=== PATIENT | female | born 1945 | race Caucasian/White ===

== ENCOUNTER → 2017-02-09 | Outpatient (CLI) | payer MEDICARE ==
[2017-02-09 13:46] LABS: CH 32.2; CHCM 33.6; HDW 2.36; MCH 32.1 pg (25.0-35.0); MCHC 33.3 g/dL (31.0-37.0); MCV 96.3 fL (80.0-100.0); Mean Platelet Volume 7.5; RBC 4.36 m/uL (3.80-5.40); WBC 5.4 k/uL (3.8-10.6)
[2017-02-09 13:50] LABS: ALT 83 U/L (9-52); AST 26 U/L (14-36); Alkaline Phosphatase 78 U/L (38-126); Anion Gap 12 mmol/L; Blood Urea Nitrogen 11 mg/dL (7-17); Calcium 9.4 mg/dL (8.4-10.2); Carbon Dioxide 32 mmol/L (22-30); Chloride 100 mmol/L (98-107); Glucose 97 mg/dL (74-99); Non-African American GFR(MDRD) >60 (>60 ml/min/1.73 sqM); Potassium 4.9 mmol/L (3.5-5.1); Sodium 144 mmol/L (137-145); Total Bilirubin 0.4 mg/dL (0.2-1.3); Total Protein 7.3 g/dL (6.3-8.2)
== END | disposition home or self-care (01) ==
LOC: LABWHC1 12:57
PROVIDERS: ATTEND Psychiatry & Neurology Psychiatry
DX: E03.9 Hypothyroidism, unspecified (principal); F31.60 Bipolar disorder, current episode mixed, unspecified; Z79.899 Other long term (current) drug therapy; Z51.81 Encounter for therapeutic drug level monitoring
CPT/HCPCS: 36415; 80053; 80164; 84439; 84443; 85027

== ENCOUNTER 2017-05-09 08:24 | Day surgery (SDC) | payer MEDICARE, OTHER ==
[2017-05-04 15:02] VITALS: BMI 20.2
[~2017-05-09 08:24] MED LIST: LACTATED RINGERS 1,000 ML IV SCH; LIDOCAINE 1% 20 ML VIAL (10MG/ML) FOR IV START INTRADERMA PRN; ONDANSETRON 4 MG/2 ML VIAL IVP PRN
[2017-05-09] MEDS: CYCLOPENTOLATE 1% OPHTH SOLN 2 ML BTL OP ONE ×4 (09:07→09:27)
[2017-05-09] MEDS: FLURBIPROFEN 0.03% OPHTH DROPS 2.5 ML BTL OP ONE ×3 (09:10→09:30)
[2017-05-09 09:14] VITALS: RESP 16; TEMP 97.5
[2017-05-09] MEDS: PHENYLEPHRINE 10% OPHTH DROPS 5 ML BTL OP ONE ×3 (09:14→09:33)
[2017-05-09] MEDS ORDERED: LIDOCAINE 1% INJ 10MG/ML (20 ML MDV) ONE (09:53)
[2017-05-09] MEDS ORDERED: PROPOFOL 10 MG/ML 20 ML VIAL IV ONE (09:53)
[2017-05-09] MEDS ORDERED: BALANCED SALT IRRIG SOLN COMB2 15 ML IRRIG.SOLN INTRAOCULA ONE (09:56)
[2017-05-09] MEDS ORDERED: EPINEPHrine (PF) 0.5 ML in BALANCED SALT IRRIG SOLN COMB2 500 ML IRRIGATION ONE (09:56)
[2017-05-09] MEDS ORDERED: TIMOLOL 0.5% OPHTH SOLN (PF) 0.2 ML DROPERETTE RIGHT EYE ONE (09:57)
[2017-05-09] MEDS ORDERED: HYALURONATE SODIUM INTRAOCULAR 1 EACH SYRINGE (10MG/ML) INTRAOCULA ONE (09:57)
--- NOTE | 2017-05-09 10:16 | P.OP ---
Date of Procedure: 05/09/17 Preoperative Diagnosis: Postoperative Diagnosis: Procedure(s) Performed: PREOPERATIVE DIAGNOSIS: Cataract, right eye. POSTOPERATIVE DIAGNOSIS: Cataract, right eye. OPERATION: Phacoemulsification cataract, right eye. DESCRIPTION OF PROCEDURE: The patient was taken to the preoperative holding area. Intravenous Propofol was given so as to bring about adequate sedation. The following mixture was given for local anesthesia: 5 mL of 2% lidocaine, 5 mL of 0.75% Marcaine, and 1 mL of Wydase. Approximately 4 mL was injected in the retrobulbar space of the surgical eye. Additional 1 mL was then directed to the temporal area of the surgical eye. This was performed to allow adequate neurological block of the facial muscles. The patient was revived and then taken into the operative room. The patient was prepped and draped in the usual sterile manner for the operative eye. A lid speculum was put into position. The conjunctiva was resected back from the limbus in the 12 o'clock position. Bleeding was controlled with electrocautery. A #69 blade was then used and a half-thickness scleral incision approximately 1-mm posterior to the limbus was made on bare sclera. This was shelved in the clear cornea using a crescent knife. Next a 15-degree blade was used to make a stab incision at the 3 o' clock position at the corneolimbal interface. Keratome blade was then used and the superior wound was extended into the anterior chamber. Viscoelastic was injected into the anterior chamber and to maintain its form. Next, a cystotome was used and a continuous anterior capsulotomy was made without difficulty. Hydrodissection using a blunt cannula and BSS was performed. Phaco probe was then employed and a groove extending from 12 to 6 o'clock in the lens was created. A Clark wand was used through the stab incision so as to perform a divide and conquer technique. Next an irrigation aspiration probe was utilized and any residual cortex was removed from the eye. Again, viscoelastic was injected into the anterior chamber. An Max posterior chamber lens implant was placed in the cartridge and injected into the anterior chamber without difficulty. The [employer] hook was utilized to spin the lens into position and this was again performed without any difficulty. The irrigation and aspiration probe was again employed and any residual viscoelastic was removed from the eye. Then BSS was injected into the limbal stab incision and the anterior chamber re-inflated. The conjunctiva was reapproximated using electrocautery. One drop of 0.25% Timoptic was placed over the corneal along with TobraDex ophthalmic ointment. Two sterile patches and a Arellano eye shield were taped into position. The patient was transported to the recovery room in stable condition. Implants: Pathology: none sent Condition: stable Disposition: same day Indications for Procedure: Operative Findings: Description of Procedure:
[2017-05-09 10:34] VITALS: BP 114/64; PULSE 50
[2017-05-09] MEDS ORDERED: TIMOLOL 0.5% OPHTH SOLN (PF) 0.2 ML DROPERETTE OP ONE (23:00)
[2017-05-09] MEDS ORDERED: GENTAMICIN/PREDNISOL AC OPHTH OINT 3.5GM OPHTHALMIC ONE (23:00)
[2017-05-09] MEDS ORDERED: BUPIVACAINE (PF) 0.75% 5 ML, LIDOCAINE 4% (PF) 5 ML, HYALURONIDASE, HUMAN RECOMB 150 UNIT MISCELLANE ONE ×3 (23:00)
== END 2017-05-09 10:45 | disposition home or self-care (01) ==
LOC: OR 08:24
PROVIDERS: ATTEND Ophthalmology
DX: H26.9 Unspecified cataract (principal); G47.33 Obstructive sleep apnea (adult) (pediatric); E07.9 Disorder of thyroid, unspecified; F41.9 Anxiety disorder, unspecified; F32.9 Major depressive disorder, single episode, unspecified; F39 Unspecified mood [affective] disorder; K21.9 Gastro-esophageal reflux disease without esophagitis; Z79.899 Other long term (current) drug therapy
CPT/HCPCS: 66984; V2632; J2001 ×2; J3470; J0171; J2704

== ENCOUNTER → 2017-06-23 | Outpatient (CLI) | payer MEDICARE, OTHER ==
[2017-06-23 09:49] LABS: CH 32.5; CHCM 34.4; HCT 39.2 % (34.0-46.0); HDW 2.45; HGB 13.5 gm/dL (11.4-16.0); MCH 32.7 pg (25.0-35.0); MCHC 34.4 g/dL (31.0-37.0); Mean Platelet Volume 7.7; RBC 4.13 m/uL (3.80-5.40); RDW 13.5 % (11.5-15.5); WBC 4.6 k/uL (3.8-10.6)
[2017-06-23 10:17] LABS: ALT 32 U/L (9-52); AST 21 U/L (14-36); Alkaline Phosphatase 50 U/L (38-126); Anion Gap 10 mmol/L; Blood Urea Nitrogen 14 mg/dL (7-17); Carbon Dioxide 29 mmol/L (22-30); Chloride 103 mmol/L (98-107); Glucose 76 mg/dL (74-99); Non-African American GFR(MDRD) >60 (>60 ml/min/1.73 sqM); Potassium 4.2 mmol/L (3.5-5.1); Sodium 142 mmol/L (137-145); Total Bilirubin 0.3 mg/dL (0.2-1.3); Total Protein 6.5 g/dL (6.3-8.2)
== END | disposition home or self-care (01) ==
LOC: LABWHC1 09:02
PROVIDERS: ATTEND Psychiatry & Neurology Psychiatry
DX: F31.60 Bipolar disorder, current episode mixed, unspecified (principal); E03.9 Hypothyroidism, unspecified; Z79.899 Other long term (current) drug therapy
CPT/HCPCS: 36415; 80053; 80164; 84439; 84443; 85027

== ENCOUNTER 2017-06-27 12:12 | Day surgery (SDC) | payer MEDICARE, OTHER ==
[2017-06-21 15:13] VITALS: BMI 20.7
[~2017-06-27 12:12] MED LIST changes: -LIDOCAINE 1% 20 ML VIAL (10MG/ML) FOR IV START INTRADERMA PRN; -ONDANSETRON 4 MG/2 ML VIAL IVP PRN
[2017-06-27] MEDS: CYCLOPENTOLATE 1% OPHTH SOLN 2 ML BTL OP ONE ×3 (12:44→13:13)
[2017-06-27] MEDS: FLURBIPROFEN 0.03% OPHTH DROPS 2.5 ML BTL OP ONE ×3 (12:47→13:18)
[2017-06-27] MEDS: PHENYLEPHRINE 10% OPHTH DROPS 5 ML BTL OP ONE ×3 (13:01→13:20)
[2017-06-27 13:17] VITALS: TEMP 97.5
[2017-06-27] MEDS ORDERED: MIDAZOLAM 2 MG/2 ML VIAL ONE (13:52)
[2017-06-27] MEDS ORDERED: fentaNYL (PF) 50 MCG/ML 2 ML AMP ONE (13:52)
[2017-06-27] MEDS ORDERED: PROPOFOL 10 MG/ML 20 ML VIAL IV ONE (13:52)
[2017-06-27] MEDS ORDERED: HYALURONATE SODIUM INTRAOCULAR 1 EACH SYRINGE (10MG/ML) INTRAOCULA ONE (13:57)
[2017-06-27] MEDS ORDERED: TIMOLOL 0.5% OPHTH SOLN (PF) 0.2 ML DROPERETTE LEFT EYE ONE (13:57)
[2017-06-27] MEDS ORDERED: BALANCED SALT IRRIG SOLN COMB2 15 ML IRRIG.SOLN INTRAOCULA ONE (13:57)
[2017-06-27] MEDS ORDERED: EPINEPHrine (PF) 0.5 ML in BALANCED SALT IRRIG SOLN COMB2 500 ML IRRIGATION ONE (13:59)
--- NOTE | 2017-06-27 14:14 | P.OP ---
Date of Procedure: 06/27/17 Preoperative Diagnosis: Postoperative Diagnosis: Procedure(s) Performed: PREOPERATIVE DIAGNOSIS: Cataract, left eye. POSTOPERATIVE DIAGNOSIS: Cataract, left eye. OPERATION: Phacoemulsification cataract, left eye. DESCRIPTION OF PROCEDURE: The patient was taken to the preoperative holding area. Intravenous Propofol was given so as to bring about adequate sedation. The following mixture was given for local anesthesia: 5 mL of 2% lidocaine, 5 mL of 0.75% Marcaine, and 1 mL of Wydase. Approximately 4 mL was injected in the retrobulbar space of the surgical eye. Additional 1 mL was then directed to the temporal area of the surgical eye. This was performed to allow adequate neurological block of the facial muscles. The patient was revived and then taken into the operative room. The patient was prepped and draped in the usual sterile manner for the operative eye. A lid speculum was put into position. The conjunctiva was resected back from the limbus in the 12 o'clock position. Bleeding was controlled with electrocautery. A #69 blade was then used and a half-thickness scleral incision approximately 1-mm posterior to the limbus was made on bare sclera. This was shelved in the clear cornea using a crescent knife. Next a 15-degree blade was used to make a stab incision at the 3 o' clock position at the corneolimbal interface. Keratome blade was then used and the superior wound was extended into the anterior chamber. Viscoelastic was injected into the anterior chamber and to maintain its form. Next, a cystotome was used and a continuous anterior capsulotomy was made without difficulty. Hydrodissection using a blunt cannula and BSS was performed. Phaco probe was then employed and a groove extending from 12 to 6 o'clock in the lens was created. A Clark wand was used through the stab incision so as to perform a divide and conquer technique. Next an irrigation aspiration probe was utilized and any residual cortex was removed from the eye. Again, viscoelastic was injected into the anterior chamber. An Max posterior chamber lens implant was placed in the cartridge and injected into the anterior chamber without difficulty. The [place] hook was utilized to spin the lens into position and this was again performed without any difficulty. The irrigation and aspiration probe was again employed and any residual viscoelastic was removed from the eye. Then BSS was injected into the limbal stab incision and the anterior chamber re-inflated. The conjunctiva was reapproximated using electrocautery. One drop of 0.25% Timoptic was placed over the corneal along with TobraDex ophthalmic ointment. Two sterile patches and a Arellano eye shield were taped into position. The patient was transported to the recovery room in stable condition. Implants: Pathology: none sent Condition: stable Disposition: same day Indications for Procedure: Operative Findings: Description of Procedure:
[2017-06-27 14:21] VITALS: PULSE 62
[2017-06-27 14:41] VITALS: BP 135/64; RESP 18
[2017-06-27] MEDS ORDERED: GENTAMICIN/PREDNISOL AC OPHTH OINT 3.5GM OPHTHALMIC ONE (23:00)
[2017-06-27] MEDS ORDERED: TIMOLOL 0.5% OPHTH SOLN (PF) 0.2 ML DROPERETTE OP ONE (23:00)
[2017-06-27] MEDS ORDERED: BUPIVACAINE (PF) 0.75% 5 ML, LIDOCAINE 4% (PF) 5 ML, HYALURONIDASE, HUMAN RECOMB 150 UNIT MISCELLANE ONE ×3 (23:00)
== END 2017-06-27 14:45 | disposition home or self-care (01) ==
LOC: OR 12:12
PROVIDERS: ATTEND Ophthalmology
DX: H25.12 Age-related nuclear cataract, left eye (principal); E07.9 Disorder of thyroid, unspecified; K21.9 Gastro-esophageal reflux disease without esophagitis; K58.9 Irritable bowel syndrome, unspecified; Z85.038 Personal history of other malignant neoplasm of large intestine; Z90.49 Acquired absence of other specified parts of digestive tract; Z79.899 Other long term (current) drug therapy
CPT/HCPCS: 66984; V2632; J2001; J2250; J3470; J0171; J3010; J2704

== ENCOUNTER → 2017-10-24 | Outpatient (CLI) | payer MEDICARE, OTHER ==
[2017-10-24 12:12] LABS: Basophils % (A) 1 %; CH 31.8; CHCM 33.4; Eosinophils # (A) 0.1 k/uL (0-0.7); Eosinophils % (A) 2 %; HCT 40.1 % (34.0-46.0); HDW 2.47; HGB 13.3 gm/dL (11.4-16.0); Luc # (Auto) 0.11; Luc % (Auto) 3; Lymphocytes # (A) 1.5 k/uL (1.0-4.8); Lymphocytes % (A) 38 %; MCH 31.6 pg (25.0-35.0); MCHC 33.1 g/dL (31.0-37.0); MCV 95.6 fL (80.0-100.0); Mean Platelet Volume 7.6; Monocytes # (A) 0.3 k/uL (0-1.0); Monocytes % (A) 7 %; Neutrophils % (A) 50 %; RDW 12.1 % (11.5-15.5); WBC 4.1 k/uL (3.8-10.6); WBC (Perox) 3.77
== END | disposition home or self-care (01) ==
LOC: LABWHC1 08:47
PROVIDERS: ATTEND Psychiatry & Neurology Psychiatry
DX: R79.89 Other specified abnormal findings of blood chemistry (principal); D64.9 Anemia, unspecified
CPT/HCPCS: 36415; 85025

== ENCOUNTER → 2018-01-10 | Outpatient (CLI) | payer MEDICARE, OTHER ==
--- NOTE | 2018-01-11 13:01 | MM ---
Reason for exam: screening (asymptomatic). History: Patient is nulliparous. Physical Findings: A clinical breast exam by your physician is recommended on an annual basis and results should be correlated with mammographic findings. MG 3D Screening Mammo W/Cad Bilateral CC and MLO view(s) were taken. The breast tissue is heterogeneously dense. This may lower the sensitivity of mammography. There is no discrete abnormality. No significant changes when compared with prior studies. ASSESSMENT: Negative, BI-RAD 1 RECOMMENDATION: Routine screening mammogram of both breasts in 1 year.
== END | disposition home or self-care (01) ==
LOC: RADMAMWWP 10:34
PROVIDERS: ATTEND Obstetrics & Gynecology
DX: Z12.31 Encounter for screening mammogram for malignant neoplasm of breast (principal)
CPT/HCPCS: 77063; 77067

== ENCOUNTER → 2018-01-17 | Outpatient (CLI) | payer MEDICARE, OTHER | END | disposition home or self-care (01) | LOC: LABWHC1 09:43 | PROVIDERS: ATTEND Internal Medicine Endocrinology, Diabetes & Metabolism | DX: E03.8 Other specified hypothyroidism (principal); E55.9 Vitamin D deficiency, unspecified | CPT/HCPCS: 36415; 82306; 84443 ==

== ENCOUNTER → 2018-02-13 | Outpatient (CLI) | payer MEDICARE, OTHER ==
[2018-02-13 13:53] LABS: HCT 37.9 % (34.0-46.0); HGB 12.7 gm/dL (11.4-16.0); MCH 31.3 pg (25.0-35.0); MCHC 33.4 g/dL (31.0-37.0); MCV 93.9 fL (80.0-100.0); Mean Platelet Volume 7.1; Platelet Count 303 k/uL (150-450); RBC 4.04 m/uL (3.80-5.40); RDW 12.4 % (11.5-15.5); WBC 8.4 k/uL (3.8-10.6)
[2018-02-13 14:02] LABS: Albumin 4.2 g/dL (3.5-5.0); Bilirubin, Delta 0.3 mg/dL (0.0-0.2); Total Bilirubin 0.3 mg/dL (0.2-1.3); Total Protein 6.8 g/dL (6.3-8.2)
[2018-02-13 14:08] LABS: Valproic Acid (Depakene) 66.6 ug/mL
== END | disposition home or self-care (01) ==
LOC: LABWHC1 12:35
PROVIDERS: ATTEND Psychiatry & Neurology Psychiatry
DX: F31.60 Bipolar disorder, current episode mixed, unspecified (principal); Z79.899 Other long term (current) drug therapy
CPT/HCPCS: 36415; 80076; 80164; 85027

== ENCOUNTER → 2018-05-10 | Outpatient (CLI) | payer MEDICARE, OTHER ==
--- NOTE | 2018-05-10 15:47 | US ---
EXAMINATION TYPE: US carotid duplex BILAT DATE OF EXAM: 05/10/2018 COMPARISON: NONE CLINICAL HISTORY: H81.10 Benign paroxysmal vertigo, unspecified ear. Dizziness. No HTN. No hx of TI A's or stroke. EXAM MEASUREMENTS: RIGHT: Peak Systolic Velocity (PSV) cm/sec ----- Right CCA: 65.1 ----- Right ICA: 120.0 ----- Right ECA: 68.6 ICA/CCA ratio: 1.8 RIGHT: End Diastole cm/sec ----- Right CCA: 16.2 ----- Right ICA: 38.3 ----- Right ECA: 11.0 LEFT: Peak Systolic Velocity (PSV) cm/sec ----- Left CCA: 75.6 ----- Left ICA: 99.8 ----- Left ECA: 64.6 ICA/CCA ratio: 1.3 LEFT: End Diastole cm/sec ----- Left CCA: 20.5 ----- Left ICA: 32.6 ----- Left ECA: 9.7 VERTEBRALS (direction of flow): Right Vertebral: Antegrade Left Vertebral: Antegrade Rhythm: Normal Grayscale images show mild amount of plaque bilateral carotid bulbs. Velocity measurements and ratios remain within normal limits bilaterally. IMPRESSION: No hemodynamic significant stenosis is seen in either internal carotid artery.
== END ==
LOC: RADUSWWP 15:01
PROVIDERS: ATTEND Family Medicine
DX: H81.10 Benign paroxysmal vertigo, unspecified ear (principal)
CPT/HCPCS: 93880

== ENCOUNTER → 2018-06-11 | Outpatient (CLI) | payer MEDICARE, OTHER ==
[2018-06-11 15:48] LABS: MCH 31.4 pg (25.0-35.0); MCHC 33.2 g/dL (31.0-37.0); MCV 94.6 fL (80.0-100.0); Mean Platelet Volume 6.7; Platelet Count 371 k/uL (150-450); RBC 4.13 m/uL (3.80-5.40); RDW 12.7 % (11.5-15.5); WBC 5.7 k/uL (3.8-10.6)
[2018-06-11 16:13] LABS: Valproic Acid (Depakene) 38.8 ug/mL
== END | disposition home or self-care (01) ==
LOC: LABWHC1 15:20
PROVIDERS: ATTEND Psychiatry & Neurology Psychiatry
DX: F31.60 Bipolar disorder, current episode mixed, unspecified (principal); Z79.899 Other long term (current) drug therapy
CPT/HCPCS: 36415; 80164; 80175; 84460; 85027

== ENCOUNTER → 2018-06-26 | Outpatient (CLI) | payer MEDICARE, OTHER ==
--- NOTE | 2018-06-27 07:30 | MR ---
EXAMINATION TYPE: MR angio head wo con, MR brain wo/w con DATE OF EXAM: 06/26/2018 COMPARISON: NONE HISTORY: Dizziness and headaches. Abnormal gait. TECHNIQUE: Multiplanar, multisequence images of the brain and brainstem is performed without and with IV contras t, utilizing 5.5 mL intravenous Gadavist . Three-D [id number] imaging was utilized to image the i ntracranial vasculature without contrast. Postprocessing 3-D images were also submitted for interpret ation of the intracranial vasculature. FINDINGS: Diffusion weighted images demonstrate no evidence of a recent infarct or other diffusion ab normality. There is no extra-axial fluid collection. Few scattered foci of T2/FLAIR hyperintensity are seen within the periventricular and subcortical white matter. This is mild burden for the patient 's age. The ventricular system and cisternal spaces are symmetrically mildly prominent compatible wit h minimal age-related volume loss. The brain volume is age appropriate. Midline structures demonstrate normal morphology. A possible 2 mm nonenhancing neurohypophysis lesio n such as a small microadenoma as questioned on sagittal T1 postcontrast image 37 only. Given slice s election this is not seen on axial or coronal images. The craniocervical junction appears within norm al limits. Post contrast images demonstrate no abnormal enhancement. The dural venous sinuses appear patent. The visualized sinuses are clear and the globes are intact. In regards to the MRA the vertebral arteries are codominant and patent in their visualized portions. The basilar artery is of normal course and caliber. The vessels of the posterior fossa are within nor mal limits without aneurysm. There is a normal anatomic configuration of the tribe of [place], which is intact. The posterior cerebral arteries, middle cerebral arteries, and anterior cerebral arteries demonstrate no dense of aneurysm or occlusion. No hemodynamically significant stenosis is identified. No arteriovenous malformation is seen. There is no evidence of dissection. Visualized portions of th e ophthalmic arteries appear unremarkable. IMPRESSION: 1. Mild burden nonspecific white matter change, most commonly on the basis of chronic microangiopathy . 2. Possible 2 mm nonenhancing lesion such as a microadenoma within the pituitary neurohypophysis. The re is further clinical concern or abnormal serum laboratory values further evaluation with dedicated MR pituitary could be performed for confirmation as this is only seen on sagittal images likely due t o slice selection. 3. No evidence of intracranial vasculature aneurysm, dissection, or hemodynamically significant steno sis. No abnormal intracranial enhancing mass.
== END ==
LOC: RADMRIMAIN 17:11
PROVIDERS: ATTEND Psychiatry & Neurology Neurology
DX: I73.9 Peripheral vascular disease, unspecified (principal); R26.9 Unspecified abnormalities of gait and mobility; R42 Dizziness and giddiness
CPT/HCPCS: 82565; 70544; 70553; 36415; A9581

== ENCOUNTER → 2018-07-18 | Outpatient (CLI) | payer MEDICARE, OTHER | END | disposition home or self-care (01) | LOC: LABWHC1 10:30 | PROVIDERS: ATTEND Internal Medicine Endocrinology, Diabetes & Metabolism | DX: E03.8 Other specified hypothyroidism (principal); E55.9 Vitamin D deficiency, unspecified | CPT/HCPCS: 36415; 82306; 84443 ==

== ENCOUNTER → 2019-01-15 | Outpatient (CLI) | payer MEDICARE, OTHER ==
--- NOTE | 2019-01-15 14:58 | BD ---
EXAMINATION TYPE: Axial Bone Density DATE OF EXAM: 01/15/2019 COMPARISON: NONE CLINICAL HISTORY: Post menopausal. Osteoporosis screening. Height: 5'2 1/2 Weight: 118 FRAX RISK QUESTIONS: History of Fracture in Adulthood: y Secondary Osteoporosis: 3. Menopause before 45: y RISK FACTORS HISTORY OF: History of Wrist Fracture: rt When: Postmenopausal woman: MEDICATIONS: Thyroid Medications: Which medication: Levothyroxine How Lon years Additional Medications: left frontal lobe injury. Mood stabilizer Additional History: colorectal 2010, EXAM MEASUREMENTS: Bone mineral densitometry was performed using the [employer] System. Bone mineral density as measured about the Lumbar spine is: ----- L1-L4(G/cm2): 1.099 T Score Values are as follows: ----- L2:- 0.8 ----- L3: -0.3 ----- L4: -0.7 ----- L1-L4: -0.7 Bone mineral density about the R hip (g/cm2): 0.911 Bone mineral density about the L hip (g/cm2): 0.916 T Score values are as follows: -----R Neck: -0.9 -----L Neck: -0.9 -----R Total: -0.1 -----L Total: 0.0 IMPRESSION: Normal (Values between +1 and -1 indicate normal bone mass). Values approach osteopenia. Consider rep eating this study in 5 years or sooner if there is some new clinical indication. NOTE: T-SCORE=SD OF THE YOUNG ADULT MEAN.
--- NOTE | 2019-01-17 09:57 | MM ---
Reason for exam: screening (asymptomatic). Last mammogram was performed 1 year ago. History: Patient has history of colon cancer at age 66 and is nulliparous. Family history of breast cancer in mother at age 75. Took hormonal contraceptives beginning at age 22. Physical Findings: A clinical breast exam by your physician is recommended on an annual basis and results should be correlated with mammographic findings. MG 3D Screening Mammo W/Cad Bilateral CC and MLO view(s) were taken. Prior study comparison: January 10, 2018, bilateral MG 3d screening mammo w/cad. The breast tissue is heterogeneously dense. This may lower the sensitivity of mammography. There is chronic nodularity bilaterally. No significant changes when compared with prior studies. ASSESSMENT: Benign, BI-RAD 2 RECOMMENDATION: Routine screening mammogram of both breasts in 1 year.
== END | disposition home or self-care (01) ==
LOC: RADMAMWWP 13:59
PROVIDERS: ATTEND Family Medicine
DX: Z12.31 Encounter for screening mammogram for malignant neoplasm of breast (principal); N95.9 Unspecified menopausal and perimenopausal disorder
CPT/HCPCS: 77063; 77067; 77080

== ENCOUNTER → 2019-06-04 | Outpatient (CLI) | payer MEDICARE, OTHER ==
[2019-06-04 14:30] LABS: HGB 12.2 gm/dL (11.4-16.0); MCH 31.1 pg (25.0-35.0); MCHC 32.9 g/dL (31.0-37.0); MCV 94.6 fL (80.0-100.0); Platelet Count 387 k/uL (150-450); RBC 3.91 m/uL (3.80-5.40); RDW 12.8 % (11.5-15.5); WBC 5.1 k/uL (3.8-10.6)
[2019-06-04 19:43] LABS: Valproic Acid (Depakene) 43.7 ug/mL (50.0-100.0)
[2019-06-04 20:05] LABS: African American GFR (CKD) 100.3 (60.0-200.0); Anion Gap 10.6 mmol/L (4.00-12.00); BUN/Creat Ratio 22.86 Ratio (12.00-20.00); Calcium 9.6 mg/dL (8.7-10.3); Carbon Dioxide 26.4 mmol/L (21.6-31.8); Potassium 4.8 mmol/L (3.5-5.5)
[2019-06-04 20:15] LABS: T4, Free (Free Thyroxine) 1.2 ng/dL (0.80-1.80)
== END | disposition home or self-care (01) ==
LOC: LABWHC1 13:39
PROVIDERS: ATTEND Psychiatry & Neurology Psychiatry
DX: F31.60 Bipolar disorder, current episode mixed, unspecified (principal); Z79.899 Other long term (current) drug therapy
CPT/HCPCS: 36415; 80048; 80164; 84439; 84443; 84460; 85027

== ENCOUNTER → 2019-08-21 | Outpatient (CLI) | payer MEDICARE, OTHER ==
[2019-08-21 10:15] LABS: HCT 37.1 % (34.0-46.0); HGB 12.7 gm/dL (11.4-16.0); MCH 31.9 pg (25.0-35.0); MCHC 34.3 g/dL (31.0-37.0); MCV 93.2 fL (80.0-100.0); Mean Platelet Volume 6.7; Platelet Count 298 k/uL (150-450); RBC 3.98 m/uL (3.80-5.40); RDW 12.5 % (11.5-15.5); WBC 3.5 k/uL (3.8-10.6)
[2019-08-21 11:16] LABS: Erythrocyte Sedimentation Rate 2 mm/hr (0-20)
== END ==
LOC: LABWHC1 09:45
PROVIDERS: ATTEND Psychiatry & Neurology Psychiatry
DX: F31.60 Bipolar disorder, current episode mixed, unspecified (principal); Z79.899 Other long term (current) drug therapy
CPT/HCPCS: 36415; 80164; 84460; 85027; 85652

== ENCOUNTER → 2019-08-22 | Outpatient (CLI) | payer MEDICARE, OTHER ==
[2019-08-22 17:31] LABS: Basophils # (A) 0.1 k/uL (0-0.2); Basophils % (A) 1 %; Eosinophils # (A) 0.1 k/uL (0-0.7); Eosinophils % (A) 1 %; HCT 36.9 % (34.0-46.0); HGB 12.6 gm/dL (11.4-16.0); Lymphocytes # (A) 2.1 k/uL (1.0-4.8); Lymphocytes % (A) 23 %; MCH 31.4 pg (25.0-35.0); MCHC 34.2 g/dL (31.0-37.0); MCV 91.8 fL (80.0-100.0); Mean Platelet Volume 7.3; Monocytes # (A) 0.6 k/uL (0-1.0); Monocytes % (A) 6 %; Neutrophils # (A) 6.3 k/uL (1.3-7.7); Neutrophils % (A) 68 %; Platelet Count 333 k/uL (150-450); RBC 4.02 m/uL (3.80-5.40); RDW 12.3 % (11.5-15.5); WBC 9.3 k/uL (3.8-10.6)
== END | disposition home or self-care (01) ==
LOC: LABWHC1 14:53
PROVIDERS: ATTEND Family Medicine
DX: D72.819 Decreased white blood cell count, unspecified (principal)
CPT/HCPCS: 36415; 85025

== ENCOUNTER → 2019-08-28 | Outpatient (CLI) | payer MEDICARE, OTHER ==
[2019-08-29 00:28] LABS: T4, Free (Free Thyroxine) 1.3 ng/dL (0.80-1.80)
== END | disposition home or self-care (01) ==
LOC: LABWHC1 14:42
PROVIDERS: ATTEND Internal Medicine Endocrinology, Diabetes & Metabolism
DX: E03.8 Other specified hypothyroidism (principal); E55.9 Vitamin D deficiency, unspecified
CPT/HCPCS: 36415; 82306; 84439; 84443

== ENCOUNTER → 2019-09-05 | Outpatient (CLI) | payer MEDICARE, OTHER ==
--- NOTE | 2019-09-05 08:13 | MR ---
MRI CERVICAL SPINE: CLINICAL HISTORY: Radiculopathy per order. TECHNIQUE: Multiplanar, multisequence imaging of the cervical spine is performed without IV contrast. COMPARISON: None. FINDINGS: Coronal images show slight S-shaped scoliotic curvature. Sagittal images show grade 1 retro listhesis C5 on C6. There is moderate to advanced disc space narrowing C5-C6 level. Vertebral body he ights are maintained. Sagittal images of the cervical spine show the craniocervical junction to appea r within normal limits. The cervical and upper thoracic spinal cord is normal in caliber and signal. Mild to moderate anterior spurring with heterogeneous Modic type II endplate changes anterior C5-C6 level is seen. Axial images show the C2-C3 level to appear within normal limits. Axial images at C3-C4 level show some uncovertebral facet degenerative changes bilaterally with centr al disc protrusion mildly facing anterior thecal sac, there is mild right-sided neural foraminal narr owing. Axial images at the C4-C5 level are within normal limits. Axial images at the C5-C6 level showed broad base posterior spur disc complex effacing anterior theca l sac and causing [id number] bilateral neural foraminal narrowing. Axial images at C6-C7 level show right paracentral/foraminal spur disc complex effacing anterolateral thecal sac and causing asymmetric moderate right-sided neural foraminal narrowing with mild left-betty ed neural foraminal narrowing noted. Axial images at C7-T1 levels are within normal limits. IMPRESSION: Multilevel degenerative changes most prominent at C5-C6 and C6-C7 levels as detailed demetrius hodges
== END | disposition home or self-care (01) ==
LOC: RADMRIMAIN 07:16
PROVIDERS: ATTEND Physician Assistant
DX: M47.22 Other spondylosis with radiculopathy, cervical region (principal)
CPT/HCPCS: 72141

== ENCOUNTER 2019-09-11 08:57 | Day surgery (SDC) | payer MEDICARE, OTHER ==
[2019-09-06 13:55] VITALS: BMI 19.7
[~2019-09-11 08:57] MED LIST changes: +LIDOCAINE 1% 20 ML VIAL (10MG/ML) FOR IV START INTRADERMA PRN
[2019-09-11 09:19] VITALS: TEMP 97.6
[2019-09-11] MEDS ORDERED: LACTATED RINGERS 1,000 ML IV ONE (09:19)
[2019-09-11] MEDS ORDERED: PROPOFOL 10 MG/ML 20 ML VIAL IV ONE (09:39)
--- NOTE | 2019-09-11 09:44 | P.GSHP ---
History of Present Illness H&P Date: 09/11/19 Chief Complaint: High risk screening 74-year-old female. She has a personal history of anorectal squamous carcinoma in situ. Also has a personal history of colon polyps and a family history in her father of colon cancer. Intermittent diarrhea and constipation which is not new. No rectal bleeding. 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 STATES SLOW COGNITIVE FUNCTION under stress- HAS MORE ENERGY AND IS MORE ALERT EARLIER IN THE DAY. edema both ankles History of Any Multi-Drug Resistant Organisms: None Reported Past Surgical History: Bowel Resection, Tubal Ligation Additional Past Surgical History / Comment(s): BOWEL SURGERY X2, viola catatact Past Anesthesia/Blood Transfusion Reactions: Previous Problems w/ Anesthesia, Motion Sickness, Postoperative Nausea & Vomiting (PONV) Additional Past Anesthesia/Blood Transfusion Reaction / Comment(s): "foggy feeling for a couple days" Smoking Status: Never smoker - Past Family History Brother(s) Family Medical History: Cancer Additional Family Medical History / Comment(s): MELANOMA, 2 BROTHERS HAD PART OF COLON REMOVED (UNKNOWN IF CANCER) Medications and Allergies Home Medications Medication Instructions Recorded Confirmed Type Divalproex Sodium [Depakote ER] 500 mg PO HS 05/04/17 09/06/19 History Levothyroxine Sodium [Synthroid] 50 mcg PO QAM 05/04/17 09/06/19 History Multivitamins, Thera [Multivitamin 1 tab PO DAILY 05/04/17 09/06/19 History (formulary)] Ranitidine HCl [Zantac] 150 mg PO BID PRN 05/04/17 09/06/19 History lamoTRIgine [LaMICtal] 50 mg PO QAM 05/04/17 09/06/19 History Acetaminophen [Tylenol Extra 500 - 1,000 mg PO Q6H PRN 06/21/17 09/06/19 History Strength] Cholecalciferol (Vitamin D3) 5,000 unit PO DAILY 09/06/19 09/06/19 History [Vitamin D3] Deep Relief Oil 1 dose TOPICAL DAILY PRN 09/06/19 09/06/19 History Ibuprofen 200 - 600 mg PO Q6HR PRN 09/06/19 09/06/19 History Peppermint Oil 50 mg PO DAILY PRN 09/06/19 09/06/19 History Vitamin C/Biotin [Hair, Skin and 1 tab PO DAILY 09/06/19 09/06/19 History Nails] Allergies Allergy/AdvReac Type Severity Reaction Status Date / Time No Known Allergies Allergy Verified 09/06/19 13:34 Surgical - Exam Vital Signs Temp Pulse Resp BP Pulse Ox 97.6 F 81 18 120/62 96 09/11/19 09:18 09/11/19 09:18 09/11/19 09:18 09/11/19 09:18 09/11/19 09:18 Physical exam: General: Well-developed, well-nourished HEENT: Normocephalic, sclerae nonicteric Abdomen: Nontender, nondistended Extremities: No edema Neuro: Alert and oriented Assessment and Plan (1) Colon cancer screening Narrative/Plan: Will proceed with colonoscopy at this time Current Visit: Yes Status: Acute Code(s): Z12.11 - ENCOUNTER FOR SCREENING FOR MALIGNANT NEOPLASM OF COLON SNOMED Code(s): 716642671
--- NOTE | 2019-09-11 09:59 | P.PCN ---
Date of Procedure: 09/11/19 Procedure(s) Performed: PREOPERATIVE DIAGNOSIS: Colon cancer screening, personal history of anal rectal squamous carcinoma in situ, family history of colon cancer, personal history of colon polyps POSTOPERATIVE DIAGNOSIS: Diverticulosis PROCEDURE: Colonoscopy ANESTHESIA: MAC SURGEON: Aram Edmonds M.D. SPECIMENS: None ENDOSCOPIC PROCEDURE: The patient was placed on the endoscopy table in the left decubitus position. The Olympus colonoscope was inserted into the anus and passed under direct visualization to the base of the cecum. The appendiceal orifice was visualized. From that point the scope was slowly withdrawn inspecting all surfaces carefully. There were no neoplastic inflammatory or po lypoid lesions throughout the cecum, ascending, transverse, descending, sigmoid and rectum. There was left sided diverticulosis noted. Digital rectal examination revealed scarring anteriorly consistent with prior surgery. No neoplastic changes noted. The patient was taken to the recovery room in stable condition per anesthesia guidelines. RECOMMENDATIONS: []
[2019-09-11 10:04] VITALS: RESP 16
[2019-09-11 10:42] VITALS: BP 143/90; PULSE 68
== END 2019-09-11 11:05 | disposition home or self-care (01) ==
LOC: ORWHC2ENDO 08:57
PROVIDERS: ATTEND Surgery
DX: K57.30 Diverticulosis of large intestine without perforation or abscess without bleeding (principal); K21.9 Gastro-esophageal reflux disease without esophagitis; M19.90 Unspecified osteoarthritis, unspecified site; G47.33 Obstructive sleep apnea (adult) (pediatric); E07.9 Disorder of thyroid, unspecified; G58.8 Other specified mononeuropathies; Z99.89 Dependence on other enabling machines and devices; Z86.19 Personal history of other infectious and parasitic diseases; Z90.49 Acquired absence of other specified parts of digestive tract; Z98.51 Tubal ligation status; Z98.41 Cataract extraction status, right eye; Z98.42 Cataract extraction status, left eye; Z79.890 Hormone replacement therapy; Z79.1 Long term (current) use of non-steroidal anti-inflammatories (NSAID); Z80.0 Family history of malignant neoplasm of digestive organs; Z86.010 Personal history of colon polyps; Z85.048 Personal history of other malignant neoplasm of rectum, rectosigmoid junction, and anus; Z79.899 Other long term (current) drug therapy
CPT/HCPCS: 45378; J2704

== ENCOUNTER → 2020-01-14 | Outpatient (CLI) | payer MEDICARE, OTHER ==
[2020-01-14 13:00] LABS: HCT 38.6 % (34.0-46.0); HGB 12.8 gm/dL (11.4-16.0); MCH 31.1 pg (25.0-35.0); MCHC 33.2 g/dL (31.0-37.0); MCV 93.7 fL (80.0-100.0); Mean Platelet Volume 7.4; Platelet Count 325 k/uL (150-450); RBC 4.12 m/uL (3.80-5.40); RDW 12.1 % (11.5-15.5); WBC 4.9 k/uL (3.8-10.6)
[2020-01-14 18:43] LABS: African American GFR (CKD) 100.3 (60.0-200.0); Albumin 4.4 g/dL (3.80-4.90); Albumin/Globulin Ratio 2.32 (1.60-3.17); Anion Gap 6.9 mmol/L (4.00-12.00); BUN/Creat Ratio 15.71 Ratio (12.00-20.00); Calcium 9.5 mg/dL (8.7-10.3); Carbon Dioxide 31.1 mmol/L (21.6-31.8); Globulin 1.9 g/dL (1.6-3.3); Non-African American GFR(CKD) 86.6 (60.0-200.0); Potassium 4.5 mmol/L (3.5-5.5); Total Bilirubin 0.3 mg/dL (0.2-1.2); Total Protein 6.3 g/dL (6.2-8.2)
[2020-01-14 18:51] LABS: T4, Free (Free Thyroxine) 1.2 ng/dL (0.80-1.80)
[2020-01-14 19:18] LABS: Valproic Acid (Depakene) 48.6 ug/mL (50.0-100.0)
== END ==
LOC: LABWHC1 11:43
PROVIDERS: ATTEND Psychiatry & Neurology Psychiatry
DX: F31.60 Bipolar disorder, current episode mixed, unspecified (principal); Z79.899 Other long term (current) drug therapy
CPT/HCPCS: 36415; 80053; 80164; 84439; 84443; 85027

== ENCOUNTER → 2022-08-12 | Outpatient (CLI) | payer MEDICARE ==
[2022-08-12 10:51] LABS: Appearance,Urine Clear (Clear); Bilirubin,Urine Negative (Negative); Blood,Urine Small (Negative); Color,Urine Yellow; Glucose,Urine (UA) Negative (Negative); Ketones,Urine 1+ (Negative); Leukocyte Esterase,Urine Negative (Negative); Mucus,Urine Rare /hpf; Nitrite,Urine Negative (Negative); Protein,Urine Negative (Negative); RBC,Urine 2 /hpf (0-5); Specific Gravity,Urine 1.018 (1.001-1.035); Urobilinogen,Urine <2.0 mg/dL (<2.0); WBC,Urine 1 /hpf (0-5)
[2022-08-12 14:49] LABS: Basophils # (A) 0.04 X 10*3/uL (0.00-0.10); Basophils % (A) 0.9 %; Eosinophils # (A) 0.06 X 10*3/uL (0.04-0.35); Eosinophils % (A) 1.3 %; HCT 41.3 % (37.2-46.3); HGB 14.1 g/dL (12.0-15.0); Immature Grans, Automated 0.2 %; Lymphocytes # (A) 1.94 X 10*3/uL (0.90-5.00); Lymphocytes % (A) 42.2 %; MCH 31.6 pg (27.0-32.0); MCHC 34.1 g/dL (32.0-37.0); MCV 92.6 fL (80.0-97.0); Mean Platelet Volume 10.8 fL (9.5-12.2); Monocytes # (A) 0.47 X 10*3/uL (0.20-1.00); Monocytes % (A) 10.2 %; NRBC Per 100 WBC 0 /100 WBCS (0.0-0.0); Neutrophils # (A) 2.08 X 10*3/uL (1.80-7.70); Neutrophils % (A) 45.2 %; Platelet Count 357 X 10*3/uL (140-440); RBC 4.46 X 10*6/uL (4.10-5.20); RDW 12.4 % (11.5-14.5)
[2022-08-12 16:31] LABS: ALT 15 U/L (8-44); AST 17 U/L (13-35); African American GFR (CKD) 71.2 (60.0-200.0); Albumin 5.1 g/dL (3.8-4.9); Albumin/Globulin Ratio 2.12 (1.60-3.17); Alkaline Phosphatase 53 U/L (41-126); Blood Urea Nitrogen 15.9 mg/dL (9.0-27.0); Calcium 10.1 mg/dL (8.7-10.3); Carbon Dioxide 27.1 mmol/L (20.0-27.5); Chloride 100 mmol/L (96-109); Chol/HDL Ratio 3.55 Ratio; Globulin 2.4 g/dL (1.6-3.3); Glucose 91 mg/dL (70-110); LDL Cholesterol,Calculated 177.9 mg/dL (0.0-131.0); Non-African American GFR(CKD) 61.4 (60.0-200.0); Potassium 5.1 mmol/L (3.5-5.5); Sodium 141 mmol/L (135-145); Total Protein 7.5 g/dL (6.2-8.2)
[2022-08-12 17:34] LABS: Valproic Acid (Depakene) 61.5 ug/mL (50.0-100.0)
== END | disposition home or self-care (01) ==
LOC: LABWHC1 08:26
PROVIDERS: ATTEND Family Medicine
DX: Z00.01 Encounter for general adult medical examination with abnormal findings (principal); E03.9 Hypothyroidism, unspecified; F31.9 Bipolar disorder, unspecified
CPT/HCPCS: 36415; 80053; 80061; 80164; 81001; 82306; 84439; 84443; 85025

== ENCOUNTER → 2022-08-25 | Outpatient (CLI) | payer MEDICARE ==
--- NOTE | 2022-08-25 17:50 | BD ---
EXAMINATION TYPE: Axial Bone Density DATE OF EXAM: 08/25/2022 COMPARISON: NONE CLINICAL HISTORY: 77 years year old Female. ICD-10 CODE: M85.80 OTH DISRD OF BONE DENSITY Height: 5 FT 2 1/4 IN Weight: 101 FRAX RISK QUESTIONS: Alcohol (3 or more units per day): NO Family History (Parent hip fracture): NO Glucocorticoids (More than 3mos): NO (Ex: prednisone, prednisolone, methylprednisolone, dexamethasone, and hydrocortisone). History of Fracture in Adulthood: YES Secondary Osteoporosis: 1. Type 1 Diabetes: NO 2. Hyperthyroidism: NO 3. Menopause before 45: UNSURE 4. Malnutrition: NO 5. Chronic liver disease: NO Rheumatoid Arthritis: NO Current Tobacco Use: NO RISK FACTORS HISTORY OF: Surgery to Spine/Hip(right/left)/Wrist (right/left): NO Family History of Osteoporosis: YES Active: YES Diet low in dairy products/other sources of calcium: NO Postmenopausal woman: YES Take estrogen and/or progesterone medications: TOOK FOR LONG TIME NO LONGER TAKES Lost more than 2 inches in height since high school: NO Frequent falls: NO Poor Health: PT HAS LYMES DISEASE Hyperparathyroidism: NO Adrenal Insufficiency: NO MEDICATIONS: Thyroid Medications: YES Which medication: LEVOTHYROXINE How Long: MANY YEARS Additional Medications: DEPAKOTE, LEVOTHYROXINE, Additional History: EXAM MEASUREMENTS: Bone mineral densitometry was performed using the [employer] System. Bone mineral density as measured about the Lumbar spine is: ----- L1-L4(G/cm2): 1.107 T Score Values are as follows: ----- L1: -1.7 ----- L2: -0.8 ----- L3: -0.1 ----- L4: -0.1 ----- L1-L4: -0.6 2018 UNAVAILABLE FOR COMPARISON Bone mineral density about the R hip (g/cm2): 0.881 Bone mineral density about the L hip (g/cm2): 0.826 T Score values are as follows: -----R Neck: -1.1 -----L Neck: -1.5 -----R Total: -0.4 -----L Total: -0.9 2018 UNAVAILABLE FOR COMPARISON FRAX%s: The graph provided illustrates a 14.2 % chance for a major osteoporotic fx and a 3.0 % chance for the hips probability for fx in 10 years time. IMPRESSION: Normal (Values between +1 and -1 indicate normal bone mass). Consider repeating this study in 5 year s or sooner if there is some new clinical indication. NOTE: T-SCORE=SD OF THE YOUNG ADULT MEAN.
--- NOTE | 2022-08-26 09:17 | MM ---
Reason for Exam: Screening (asymptomatic). Last mammogram was performed 3 year(s) and 7 month(s) ago. Patient History: Menarche at age 17. Patient has no children. Postmenopausal. Colorectal cancer, age 66. Hormonal Contraceptives for 13 years from age 22 until age 35. Mother had breast cancer, age 75. Risk Values: Marily 5 year model risk: 3.2%. NCI Lifetime model risk: 6.8%. Prior Study Comparison: 01/10/2018 Bilateral Screening Mammogram, [facility]. 01/15/2019 Bilateral Screening Mammogram, [facility]. Tissue Density: The breast tissue is heterogeneously dense. This may lower the sensitivity of mammography. Findings: Analyzed By CAD. There is no suspicious group of microcalcifications or new suspicious mass in either breast. Overall Assessment: Negative, BI-RAD 1 Management: Screening Mammogram of both breasts in 1 year. Some consider bilateral breast ultrasound surveillance in patient's with background dense tissue. A clinical breast exam by your physician is recommended on an annual basis and results should be correlated with mammographic findings. Electronically signed and approved by: Avery Rae M.D.
== END | disposition home or self-care (01) ==
LOC: RADBDWWP 08:56
PROVIDERS: ATTEND Family Medicine
DX: Z12.31 Encounter for screening mammogram for malignant neoplasm of breast (principal); M85.80 Other specified disorders of bone density and structure, unspecified site
CPT/HCPCS: 77063; 77067; 77080